=== PATIENT | male | born 1950 | race Caucasian/White ===

== ENCOUNTER 2019-11-11 18:32 | Emergency (ER) | payer OTHER, MEDICARE, SELFPAY ==
--- NOTE | 2019-11-11 18:35 | ED.UPPEXIN ---
HPI - Extremity Injury (Upper) General Chief Complaint: Extremity Injury, Upper Stated Complaint: Thinks has a seperated bicep, right arm Time Seen by Provider: 11/11/19 18:35 Source: patient Mode of arrival: Ambulatory Limitations: no limitations History of Present Illness HPI narrative: The patient presents for evaluation of a right biceps injury that occurred 31 October 2019. 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 He was lifting a heavy item from height. He sustained injury to the right distal biceps tendon. Cyst injury he has had a area of edema in the biceps, with pain with motion. He has not noticed significant weakness. He has no numbness or tingling in the hand. He has no limitation of motion. He is right-hand dominant. There were no other injuries at the time. He is now here due to concern of a separation of the biceps in the right arm. Review of Systems Review of Systems ROS Unobtainable: All systems reviewed & are unremarkable except as noted in HPI and below Constitutional Constitutional: Denies chills, Denies fever(s) and Denies weakness Musculoskeletal Musculoskeletal: Denies numbness Comments: Right arm injuries noted HPI. Integumentary/Breasts Skin/Breast: Denies pruritus, Denies erythema, Denies rash and Denies wounds Neurologic Neurologic: Denies numbness and Denies weakness Patient History Social History Smoking Status: Never smoker Exam Initial Vital Signs Initial Vital Signs: Vital Signs Temperature 97.7 F 11/11/19 18:45 Pulse Rate 59 L 11/11/19 18:45 Respiratory Rate 16 11/11/19 18:45 Blood Pressure 188/99 H 11/11/19 18:45 Pulse Oximetry 100 11/11/19 18:45 Const General: cooperative and well developed Nutritional Appearance: well nourished Skin General: no rashes or lesions noted and No petechiae Neuro General: patient alert, patient oriented x3, gait normal and no focal motor deficits Extrem Other: Full range of motion the right shoulder and the right elbow. He has a palpable defect in the distal right biceps consistent with a muscle tear. He has normal strength despite the injury. The right arm is otherwise normal. The right radial pulse is normal. Course Course Course Narrative: The patient has an obvious tear to the right distal biceps. He has good motion and good strength in the forearm. It is also noted his blood pressure is elevated. He puts in a lot of effort toward maintaining physical fitness. With his own blood pressure morning, he still has frequent hours the 140-150 range. I referred him to his own physician to regarding blood pressure management. I have referred him to Orthopedics, Dr. Angela, regarding his arm. Vital Signs Vital signs: Vital Signs - 8 hr 11/11/19 18:45 Temperature 97.7 F Pulse Rate 59 L Respiratory Rate 16 Blood Pressure 188/99 H Pulse Oximetry 100 Discharge Plan Departure Patient Disposition: Home Clinical Impression: Elevated blood pressure reading Tear of right biceps muscle Qualifiers: Encounter type: initial encounter Qualified Code(s): S46.211A - Strain of muscle, fascia and tendon of other parts of biceps, right arm, initial encounter Discharge Date/Time: 11/11/19 19:24 Instructions: Essential Hypertension, DI for Arm Pain Activity Restrictions/Additional Instructions: Limit lifting with the right arm to 5 lb. Continue regular minding of your blood pressure. Follow-up with your primary care doctor to review her blood pressure readings. I will give you contact information for Dr. Angela, orthopedics. Call his office tomorrow to arrange follow-up. Return to the ER as needed. Referrals: Montez Angela MD [Physician] -
[2019-11-11 18:45] VITALS: BP 188/99; PULSE 59; RESP 16; TEMP 36.5; O2SAT 100; BMI 32.9
[2019-11-11 19:16] VITALS: BP 178/89; PULSE 60; RESP 16; O2SAT 98
== END 2019-11-11 19:24 | disposition home or self-care (01) ==
PROVIDERS: Emergency Provider Emergency Medicine
DX: S46.211A Strain of muscle, fascia and tendon of other parts of biceps, right arm, initial encounter (principal); I10 Essential (primary) hypertension; X50.0XXA Overexertion from strenuous movement or load, initial encounter
CPT/HCPCS: 99281; 99282

== ENCOUNTER → 2019-11-18 07:59 | Outpatient (CLI) | payer OTHER, MEDICARE, SELFPAY ==
--- NOTE | 2019-11-18 | DI.MRI.S_ITS ---
PROCEDURE: MR HUMERUS RT WO/W CON INDICATIONS: Unspecified injury of muscle, fascia and tendon of long head TECHNIQUE: Noncontrast coronal T1 spin echo and STIR, sagittal T1 spin echo with fat saturation and STIR, axial T1 spin echo and T2 fast spin echo with fat saturation. After the administration of contrast, axial/sagittal/coronal T1 spin echo with fat saturation through the right humerus. COMPARISON: None. FINDINGS: Image quality: Excellent. Bones: The visualized bone marrow demonstrates normal signal on all sequences. The overlying cortex appears intact. No abnormal intraosseous enhancement. Soft tissues: Large amount of fluid is seen surrounding a retracted long head biceps tendon stump seen approximately 13 cm caudad to the humeral head cortex measured on coronal images. There is surrounding reactive peripheral enhancement. The distal/inferior attachment of the biceps and brachialis tendons are not entirely included on the exam [id number] although appear grossly unremarkable where seen. Thickening of the subscapularis tendon is partially visualized on some pulse sequences. Age-indeterminate anterior and posterior labral tear, although this is probably chronic. Glenohumeral degenerative joint disease IMPRESSION: Ruptured long head biceps tendon, with inferiorly retracted tendon stump located approximately 13 cm caudad to the superior humeral head cortex. Large amount of surrounding fluid and edema. Peripheral reactive enhancement. Subscapularis tendinopathy/partial tear. No abnormal enhancement Chronic background degenerative changes as above Dictated by: Ted Ramos M.D. on 11/18/2019 at 10:03 Approved by: Ted Ramos M.D. on 11/18/2019 at 10:11
== END ==
PROVIDERS: Referring Provider Family Medicine; Visit Provider Family Medicine
DX: S46.101A Unspecified injury of muscle, fascia and tendon of long head of biceps, right arm, initial encounter (principal); M19.011 Primary osteoarthritis, right shoulder; X58.XXXA Exposure to other specified factors, initial encounter
CPT/HCPCS: 73218